=== PATIENT | male | born 1990 | race Caucasian/White ===

== ENCOUNTER 2020-04-07 06:00 | Outpatient (RCR) | payer OTHER, SELFPAY | END 2020-05-05 23:59 | disposition home or self-care (01) | LOC: GPT 06:00 | PROVIDERS: PCP Family Medicine; Referring Provider Nurse Practitioner Family; Visit Provider Nurse Practitioner Family | DX: M51.16 Intervertebral disc disorders with radiculopathy, lumbar region (principal); M51.26 Other intervertebral disc displacement, lumbar region; M54.32 Sciatica, left side; M54.16 Radiculopathy, lumbar region | CPT/HCPCS: 97032; 97110; 97112; 97140; 97161; 97530; G0283 ==

== ENCOUNTER 2020-05-06 06:00 | Outpatient (RCR) | payer OTHER, SELFPAY | END 2020-06-05 23:59 | disposition home or self-care (01) | LOC: GPT 06:00 | PROVIDERS: PCP Family Medicine; Referring Provider Nurse Practitioner Family; Visit Provider Nurse Practitioner Family | DX: M51.16 Intervertebral disc disorders with radiculopathy, lumbar region (principal); M51.26 Other intervertebral disc displacement, lumbar region | CPT/HCPCS: 97110; 97140; 97164; 97530 ==

== ENCOUNTER 2020-06-06 06:00 | Outpatient (RCR) | payer OTHER, SELFPAY | END 2020-07-05 23:59 | disposition home or self-care (01) | LOC: GPT 06:00 | PROVIDERS: PCP Family Medicine; Referring Provider Nurse Practitioner Family; Visit Provider Nurse Practitioner Family | DX: M51.16 Intervertebral disc disorders with radiculopathy, lumbar region (principal); M51.26 Other intervertebral disc displacement, lumbar region | CPT/HCPCS: 97110; 97140; 97164; 97530 ==

== ENCOUNTER 2020-07-06 06:00 | Outpatient (RCR) | payer OTHER, SELFPAY | END 2020-08-05 23:59 | disposition home or self-care (01) | LOC: GPT 06:00 | PROVIDERS: PCP Family Medicine; Referring Provider Nurse Practitioner Family; Visit Provider Nurse Practitioner Family | DX: M51.16 Intervertebral disc disorders with radiculopathy, lumbar region (principal); M54.9 Dorsalgia, unspecified | CPT/HCPCS: 97110; 97140; 97530 ==

== ENCOUNTER 2020-08-06 06:00 | Outpatient (RCR) | payer OTHER, SELFPAY | END 2020-09-05 23:59 | disposition home or self-care (01) | LOC: GPT 06:00 | PROVIDERS: PCP Family Medicine; Referring Provider Nurse Practitioner Family; Visit Provider Nurse Practitioner Family | DX: M51.16 Intervertebral disc disorders with radiculopathy, lumbar region (principal); M54.9 Dorsalgia, unspecified | CPT/HCPCS: 97110; 97112; 97140; 97164 ==

== ENCOUNTER 2020-09-06 06:00 | Outpatient (RCR) | payer OTHER, SELFPAY | END 2020-10-03 23:59 | disposition home or self-care (01) | LOC: GPT 06:00 | PROVIDERS: PCP Family Medicine; Referring Provider Nurse Practitioner Family; Visit Provider Nurse Practitioner Family | DX: M54.89 Other dorsalgia (principal) | CPT/HCPCS: 97110; 97112; 97140 ==

== ENCOUNTER 2020-10-04 06:00 | Outpatient (RCR) | payer OTHER, SELFPAY | END 2020-11-03 23:59 | disposition home or self-care (01) | LOC: GPT 06:00 | PROVIDERS: PCP Family Medicine; Referring Provider Nurse Practitioner Family; Visit Provider Nurse Practitioner Family | DX: M51.16 Intervertebral disc disorders with radiculopathy, lumbar region (principal); M54.9 Dorsalgia, unspecified; M54.16 Radiculopathy, lumbar region | CPT/HCPCS: 97110; 97140 ==

== ENCOUNTER → 2021-05-26 16:50 | Outpatient (BNVA) | payer BC, SELFPAY | PROVIDERS: PCP Family Medicine; Visit Provider Nurse Practitioner Family | DX: R20.0 Anesthesia of skin (principal) | CPT/HCPCS: 80053; 85025 ==

== ENCOUNTER 2024-06-27 07:21 | Outpatient (CLI) | payer BC, SELFPAY ==
--- NOTE | 2024-06-27 07:24 | MR_ITS ---
WS: [id number] MRI LUMBAR SPINE WITH AND WITHOUT HISTORY: INTERVERTEBRAL DISC DISORDER, POST LAMINECTOMY, worsening low back pain, LEFT leg pain. COMPARISON: None available. TECHNIQUE: Sagittal and axial multisequence imaging is submitted. Postcontrast imaging with MultiHanc e 20 mL. Straightening of the normal lumbar lordosis. Mild desiccation of L3-4 and L4-5. No fractures or marro w edema. Conus terminates normally at L1-2 disc level. L1-L2: Bilateral facet joint arthritis. No stenosis. L2-L3: Mild bilateral facet joint arthritis, RIGHT greater than LEFT. Annular disc bulging encroachin g upon the ventral thecal sac and subarticular recesses. There is mild disc contact on the traversing L3 nerve roots. Mild RIGHT foraminal narrowing. L3-L4: Moderate diffuse annular disc bulging with osteophytic ridging. Disc contacts the traversing L 4 nerve roots in the subarticular recesses. There is a tiny central disc protrusion. LEFT foraminal d isc protrusion causes crowding and displacement of the LEFT exiting L3 nerve root. Mild central with bilateral moderate subarticular recess stenosis and moderate LEFT foraminal stenosis. L4-L5: Diffuse annular disc bulge with a central disc protrusion deforming the ventral thecal sac. Deshpande barticular extension of the disc contacts the traversing L5 nerve roots. Asymmetric extension of the disc to the RIGHT foramen. Mild central with moderate bilateral subarticular recess stenosis. Moderat e to severe RIGHT and mild LEFT foraminal stenosis. L5-S1: Mild facet arthritis. No stenosis. Paravertebral soft tissues are normal. Postcontrast images are negative for discitis or osteomyelitis. By history patient's had a prior disc estimate. There is mild enhancement on the postcontrast images at the L3-4 facet joints. MR/MR lumbar spine wo/w con [id number] IMPRESSION: 1. Mild straightening of the normal lumbar lordosis with 3 mm retrolisthesis o f L4. 2. L3-4: Disc disease and osteophytic ridging resulting in mild central with b ilateral moderate subarticular recess stenosis and moderate LEFT foraminal sten osis. Moderate size LEFT foraminal disc protrusion displacing and contacting th e exiting LEFT L3 nerve root. 3. L4-5: Central disc protrusion extends subarticular contacting the traversin g L5 nerve roots. Mild central with moderate bilateral subarticular recess and moderate to severe RIGHT foraminal stenosis. Deformity of the RIGHT exiting L4 nerve root. 4. L2-3: Mild disc contact on the traversing L3 nerve roots and mild RIGHT for aminal stenosis. 5. No discitis or osteomyelitis. 6. Mild synovitis at the L3-4 facet joints.
[2024-06-27] MEDS: gadobenate dimeglumine 20 mL vial IV (08:12)
== END 2024-06-27 07:22 | disposition home or self-care (01) ==
PROVIDERS: PCP Family Medicine; Visit Provider General Practice
DX: M51.17 Intervertebral disc disorders with radiculopathy, lumbosacral region (principal); M96.1 Postlaminectomy syndrome, not elsewhere classified; M47.896 Other spondylosis, lumbar region; M51.360 Other intervertebral disc degeneration, lumbar region with discogenic back pain only; M51.26 Other intervertebral disc displacement, lumbar region; M99.63 Osseous and subluxation stenosis of intervertebral foramina of lumbar region; M25.78 Osteophyte, vertebrae
CPT/HCPCS: 72158